=== PATIENT | female | born 1975 | race African-American/Black ===

== ENCOUNTER 2017-01-21 06:58 | Emergency (ER) | payer OTHER ==
[~2017-01-21 06:58] MED LIST: ULTRAM PO
== END 2017-01-21 07:03 | disposition home or self-care (01) ==
LOC: CED 06:58
DX: S99.922A Unspecified injury of left foot, initial encounter (principal); F10.120 Alcohol abuse with intoxication, uncomplicated; X58.XXXA Exposure to other specified factors, initial encounter
CPT/HCPCS: 99283